=== PATIENT | male | born 1985 | race Hispanic/Latino ===

== ENCOUNTER 2018-11-29 20:13 | Emergency (ER) | payer OTHER ==
[~2018-11-29] VITALS: Ht 177.8 cm; Wt 139.4 kg
[~2018-11-29 20:13] MED LIST: ADVAIR 250-501 EACH INH; FEXOFENADINE H180 MG PO; GLYBURIDE-METF1 EAC1 PO; GUAIFENESIN AC473 ML PO; LEVOFLOXACIN500 MG PO; LISINOPRIL10 MG PO; PROVENTIL HFA6.7 GM INH
--- OUTSIDE RECORDS SUMMARY | 2018-11-29 20:15 | XMS REPORT ---
Author Author [facility] Address Unknown Phone Unavailable Care Team Providers Care Organic Section Technical Lead Name Role Phone Jessica SCHMID Unavailable Unavailable Payers Payer Name Policy Type Policy Number Effective Date Expiration Date Problems This patient has no known problems. Allergies, Adverse Reactions, Alerts Allergy Name Allergy Type Status Severity Reaction(s) Onset Date Inactive Date Treating Clinician Comments amoxicillin DA Active SV 2018-08-21 00:00:00 amoxicillin DA Active SV 2018-03-03 00:00:00 Medications This patient has no known medications. Results Test Description Test Time Test Comments Text Results Atomic Results Result Comments CHEST SINGLE (PORTABLE) [place] [address] Patient Name: RENALDO JAIME MR #: [id number] : 1985 Age/Sex: 32/M Req #: [id number] Adm Physician: Ordered by: LACEY SCHMID MD Report #: [id number] Location: ER Room/Bed: Procedure: [id number] DX/CHEST SINGLE (PORTABLE) Exam Date: Exam Time: REPORT STATUS: Signed EXAM: CHEST SINGLE (PORTABLE), AP 1 view DATE: 05/03/2017 12:29 AM Time stamp on exam: 0039 hours INDICATION: Shortness of breath, possible pneumonia COMPARISON: AP view of the chest September 09, 2013 FINDINGS: LINES/TUBES: None LUNGS: No consolidations or edema. PLEURA: No effusions or pneumothorax. HEART AND MEDIASTINUM: Normal size and contour. BONES AND SOFT TISSUES: No acute findings. IMPRESSION: No evidence of pneumonia. Signed by: Dr. Manjit Willoughby M.D. on 05/03/2017 1:08 AM Dictated By: MANJIT WILLOUGHBY MD 7 Transcribed By: BACILIO on 05/03/17107 COPY TO: LACEY SCHMID MD
[2018-11-29] MEDS ORDERED: KETOROLAC TROMETHAMINE 60 MG/2 ML VIAL IM ONE (20:45)
[2018-11-29 21:14] VITALS: BP 152/90
== END 2018-11-29 21:10 | disposition home or self-care (01) ==
LOC: FSED 20:13
DX: M54.2 Cervicalgia (principal); M54.5 Low back pain; S39.012A Strain of muscle, fascia and tendon of lower back, initial encounter; V43.52XA Car driver injured in collision with other type car in traffic accident, initial encounter; Y92.488 Other paved roadways as the place of occurrence of the external cause
CPT/HCPCS: 96372; 99283; J1885